=== PATIENT | male | born 1995 | race Caucasian/White ===

== ENCOUNTER → 2022-01-17 16:35 | Outpatient (CLI) | payer OTHER, SELFPAY ==
--- NOTE | 2022-01-17 16:37 | DI.RAD.S_ITS ---
PROCEDURE: XR ANKLE LT MIN 3V INDICATIONS: left ankle pain TECHNIQUE: 3 views of the ankle were acquired. COMPARISON: None. FINDINGS: Bones: No acute fractures or dislocations. Ankle mortise is normally aligned. No suspicious bony lesions. Soft tissues: Mild soft tissue edema over the lateral malleolus. IMPRESSION: No acute osseous abnormality. If clinical suspicion and/or symptoms persist, additional imaging with repeat plain films, or advanced imaging (e.g. CT, MRI) may be helpful for further assessment. Approved by: Bandar Soria M.D. on 01/17/2022 at 17:05
== END ==
PROVIDERS: Referring Provider Nurse Practitioner Family; Visit Provider Nurse Practitioner Family
DX: M25.572 Pain in left ankle and joints of left foot (principal)
CPT/HCPCS: 73610

== ENCOUNTER 2022-09-12 11:21 | Emergency (ER) | payer OTHER, SELFPAY ==
[2022-09-12] VITALS (7 sets, daily range): BP systolic 119–135; BP diastolic 74–87; PULSE 65–79; RESP 17–18; TEMP 36.4; O2SAT 96–100
--- NOTE | 2022-09-12 11:34 | DI.CT.S_ITS ---
PROCEDURE: CT HEAD/BRAIN WO CON INDICATIONS: dizziness, near syncope, hx pseudotumor cerebri TECHNIQUE: Noncontrast 4.5 mm thick angled axial sections acquired from the foramen magnum to the vertex, with coronal and sagittal reformats. For radiation dose reduction, the following was used: automated exposure control, adjustment of mA and/or kV according to patient size. COMPARISON: None. FINDINGS: Image quality: Excellent. CSF spaces: Basal cisterns are patent. No extra-axial fluid collections. Ventricles are normal in size and shape. Brain: No midline shift. No intracranial masses or hemorrhage. Toney-white matter interface is normal. Skull and face: Calvarium and visualized facial bones are intact, without suspicious lesions. Sinuses: Visualized sinuses and mastoids are clear. IMPRESSION: No acute intracranial abnormalities. Dictated by: Mario Turner M.D. on 09/12/2022 at 12:11 Approved by: Mario Turner M.D. on 09/12/2022 at 12:12
--- NOTE | 2022-09-12 11:37 | ED_ITS ---
HPI - Dizziness General Chief Complaint: Dizziness Stated Complaint: Dizzy, Feels drunk w/o ETOH Time Seen by Provider: 09/12/22 11:28 Source: patient Mode of arrival: Ambulatory History of Present Illness HPI Narrative: 27-year-old male nonsmoker with a history of pseudotumor cerebri presents with a chief complaint of some vague dizziness over the past few days. He states the dizziness is worse upon standing and improves when he sits. He denies any trauma or injury. He has no neck pain. Denies any fever or chills. He does state his symptoms are vaguely similar to when his pseudotumor had initially started many [place] ago [place]. He denies any pain, denies any alcohol or street drugs. Denies runny nose, sore throat or cough. Denies any nausea or vomiting. Is able to walk a straight line with a steady gait. Denies any extremity numbness, tingling or weakness Related Data Home Medications Medication Instructions Recorded Confirmed sertraline 50 mg tablet 50 mg PO DAILY 09/12/22 09/12/22 Allergies Allergy/AdvReac Type Severity Reaction Status Date / Time loratadine [From Claritin] AdvReac Mild Verified 09/12/22 11:32 Review of Systems Review of Systems Narrative: GENERAL: Denies chills, fatigue, malaise, fever, sweats. HEENT: Denies sinus pain, ear pain, sore throat, difficulty swallowing, dizziness. RESPIRATORY: Denies dyspnea, cough, wheezing, hemoptysis, sputum. CARDIOVASCULAR: Denies chest pain, palpitations, orthopnea, edema, GASTROINTESTINAL: Denies nausea, vomiting, abdominal pain, diarrhea, constipation, melena. : Denies dysuria, frequency, incontinence, hematuria, urinary retention. MUSCULOSKELETAL: denies weakness, joint pain, or bony pain SKIN: Denies rash, skin lesions, or other NEUROLOGIC: See HPI PSYCHIATRIC: No concerning psychosocial issues. 12 point review of systems is negative except for those stated above Patient History Social History Smoking Status: Never smoker Smoking Status: Never smoker tobacco type: smokeless tobacco alcohol intake frequency: 0-2 drinks per day Substance Use Type: does not use Exam Narrative Exam Narrative: GENERAL: [27] year old patient appears stated age. Well-developed patient, in mild distress. HEAD: Atraumatic. Normocephalic. EYES: Pupils equal round and reactive. Extraocular motions intact. No scleral icterus. No injection or drainage. ENT: Nose without bleeding, purulent drainage. Throat without erythema, tonsillar hypertrophy or exudate. Airway patent. NECK: Trachea midline. Non tender CARDIOVASCULAR: Regular rate and rhythm without murmurs, gallops, or rubs. RESPIRATORY: Clear to auscultation. Breath sounds equal bilaterally. No wheezes, rales, or rhonchi. GASTROINTESTINAL: Abdomen soft, non-tender, nondistended. EXTREMITIES: No edema or joint tenderness. BACK: Nontender without deformity or crepitance. No flank tenderness. NEURO: AOx3. Cranial nerves 2-12 grossly intact SKIN: No rash or erythema of visible areas NIH Stroke Scale 1a. LOC: Patient is alert and keenly responsive (0) 1b. LOC Questions: Patient answers both LOC questions accurately (0) 1c. LOC Commands: Patient performs both tasks correctly (0) 2. Best Gaze: Normal (0) 3. Visual: No visual loss (0) 4. Facial palsy: Normal symmetrical movements (0) 5. Motor arm: No drift (0) 6. Motor leg: No drift (0) 7. Limb ataxia: Absent (0) 8. Sensory: Normal (0) 9. Best language: No aphasia; normal (0) 10. Dysarthria: Normal (0) 11. Extinction and inattention: No abnormality (0) NIHSS: 0 Initial Vital Signs Initial Vital Signs: Vital Signs Temperature 97.5 F L 09/12/22 11:25 Pulse Rate 79 09/12/22 11:25 Respiratory Rate 18 09/12/22 11:25 Blood Pressure 135/87 09/12/22 11:25 Pulse Oximetry 96 09/12/22 11:25 Oxygen Delivery Method Room Air 09/12/22 11:25 Course Orders Ordered: Discontinued Medications Sodium Chloride (Normal Saline 0.9%) 1,000 mls @ 1,000 mls/hr IV BOLUS ONE Stop: 09/12/22 12:32 Last Infusion: 09/12/22 12:51 Dose: 0 mls/hr Documented By: Admin: 09/12/22 11:57 Dose: 1,000 mls/hr Documented By: [facility] – [place], [place] Vital Signs Vital signs: Vital Signs - 8 hr 09/12/22 11:25 Temperature 97.5 F L Pulse Rate 79 Respiratory Rate 18 Blood Pressure 135/87 Pulse Oximetry 96 Oxygen Delivery Method Room Air MDM - Dizziness Lab Data 09/12/22 11:39 09/12/22 11:39 Labs: Lab Results 09/12/22 09/12/22 Range/Units 11:39 11:39 WBC 7.5 (4.5-11.0) X10^3/uL RBC 4.48 L (4.5-5.9) X10^6/uL Hgb 14.8 (13.5-17.5) g/dL Hct 41.2 (41-53) % MCV 91.8 (80-100) fL MCH 33.0 (26-34) PG MCHC 35.9 (30-36) % RDW 12.8 (11.6-14.8) % Plt Count 224 (150-400) X10^3/uL Neut % (Auto) 68.2 (50-75) % Lymph % (Auto) 20.4 L (25-40) % [place] % (Auto) 8.4 (3-14) % Eos % (Auto) 2.0 (2-4) % Baso % (Auto) 1.0 (0-2) % Neut # (Auto) 5100 (4170-6571) /uL Lymph # (Auto) 1500 (0350-2991) /uL [place] # (Auto) 600 (0-900) /uL Eos # (Auto) 100 (0-450) /uL Baso # (Auto) 100 (0-100) /uL Sodium 137 (137-145) mmol/L Potassium 3.9 (3.4-5.1) mmol/L Chloride 103 (98-107) mmol/L Carbon Dioxide 27 (22-32) mmol/L BUN 18 (9-20) mg/dL Creatinine 0.98 (0.66-1.25) mg/dL Estimated GFR > 60 (>60) mL/min BUN/Creatinine Ratio 18.4 (6-22) Glucose 89 (70-100) mg/dL Calcium 8.9 (8.4-10.2) mg/dL Magnesium 2.2 (1.6-2.3) mg/dL Total Bilirubin 0.8 (0.2-1.3) mg/dL AST 35 (17-59) IU/L ALT 22 (<50) IU/L Alkaline Phosphatase 63 (38-126) U/L Total Protein 7.2 (6.3-8.2) g/dL Albumin 4.5 (3.5-5.0) g/dL Globulin 2.7 (1.7-4.1) g/dL Albumin/Globulin Ratio 1.7 (1.0-2.8) Urine Dip Bedside Urine Glucose Negative Bedside Urine Bilirubin - Negative Bedside Urine Ketone - Negative Urine Specific [place] 1.015 Bedside Urine Occult Blood - Negative Bedside Urine pH 6.0 Bedside Urine Protein - Negative Bedside Urine Urobilinogen - Negative Bedside Urine Nitrite - Negative Bedside Urine Leukocytes - Negative Esterase MDM Narrative Medical decision making narrative: CC: 27-year-old male with vague dizziness Complicating co-morbidities: History of pseudotumor Data collected from: Patient Medical records reviewed: Prior notes reviewed in our EMR Differential considered, but not limited to: Stroke versus atypical migraine versus dissection versus pseudotumor versus other Exam documented above, pertinent findings include: Very reassuring, cranial nerves 2-12 grossly intact, no focal findings, heart rate regular, lungs clear Lab Test results independently reviewed as above. Pertinent findings: No significant abnormalities requiring intervention Independently reviewed EKG as above Imaging studies independently reviewed: Head CT, CTA of head and neck, and MRI unremarkable Scores Used: NIHSS Discussion: 19-year-old male with reassuring history and physical exam, multiple diagnoses considered as noted above, labs, imaging all very reassuring, no evidence at this time that further intervention or treatment is needed. He is encouraged to follow closely with his primary care provider, return precautions given Disposition: see below, along with detailed discharge instructions that have been reviewed with patient as well as indications for ED re-evaluation and additional outpatient follow up Discharge Plan Departure Patient Disposition: Home Clinical Impression: Dizziness Instructions: DI for Dizziness-Nonvertigo Activity Restrictions/Additional Instructions: *You have been diagnosed with [dizziness without any significant abnormal findings on labs CT or MRI ] *What to do: *Please continue to take your regular medications as directed. [ ] New medication prescriptions sent to your pharmacy: [ ] [ ] New medication written as a paper prescription [x ] No new medications given *Please follow up with your primary care provider in 2-3 days, call for an appointment. Let them know you were seen in the Emergency Department and that we ask that you be seen in follow up. We will electronically transmit a record of today's note if your PCP is in our system *If you do not have a primary care provider please contact the [facility] Resource line at [phone]. They will ask some questions about your medical history and help get you set up with a doctor in the community. * as we discussed I have included the contact info for the closest Neurology allison up which work out of [facility]. Please contact the office listed below, let them know you were seen in the emergency department and we would like you seen in follow-up *Return to Emergency Department if you should have any new, worsening or concerning symptoms, such as [fever greater than 101 F, shaking chills, worsening pain, persistent vomiting or other bothersome symptoms] Prescriptions: No Action sertraline 50 mg tablet 50 mg PO DAILY Referrals: Miscellaneous,MD Mary [Primary Care Provider] - Andrew Baker MD [Non-Staff] - Stand Alone Forms: Patient Portal/API
[2022-09-12 11:45] LABS: Add Manual Diff / Slide Review NO; Basophils Absolute Auto 100 /uL (0-100); Eosinophils Absolute Auto 100 /uL (0-450); Hematocrit 41.2 % (41-53); Hemoglobin 14.8 g/dL (13.5-17.5); Lymphocytes Absolute Auto 1500 /uL (1100-4500); Lymphocytes Percent Auto 20.4 % (25-40); Mean Corpuscular HGB Conc 35.9 % (30-36); Mean Corpuscular Volume 91.8 fL (80-100); Monocytes Absolute Auto 600 /uL (0-900); Monocytes Percent Auto 8.4 % (3-14); Neutrophils Absolute Auto 5100 /uL (1500-7000); Neutrophils Percent Auto 68.2 % (50-75); Platelet Count 224 X10^3/uL (150-400); Red Blood Cell Count 4.48 X10^6/uL (4.5-5.9); Red Cell Distribution Width 12.8 % (11.6-14.8); White Blood Cell Count 7.5 X10^3/uL (4.5-11.0)
[2022-09-12] MEDS: SODIUM CHLORIDE 0.9% 1,000 ML 1000 ML IV (11:57)
[2022-09-12 11:58] LABS: Alanine Aminotransferase 22 IU/L (<50); Albumin 4.5 g/dL (3.5-5.0); Albumin Globulin Ratio 1.7 (1.0-2.8); Alkaline Phosphatase 63 U/L (38-126); Aspartate Aminotransferase 35 IU/L (17-59); BUN Creatinine Ratio 18.4 (6-22); Bilirubin Total 0.8 mg/dL (0.2-1.3); Blood Urea Nitrogen 18 mg/dL (9-20); Calcium 8.9 mg/dL (8.4-10.2); Carbon Dioxide 27 mmol/L (22-32); Chloride 103 mmol/L (98-107); Estimated Glomerular Filt Rate > 60 mL/min (>60); Globulin 2.7 g/dL (1.7-4.1); Glucose 89 mg/dL (70-100); HEMOLYSIS < 15 (0-50); Magnesium 2.2 mg/dL (1.6-2.3); Potassium 3.9 mmol/L (3.4-5.1); Sodium 137 mmol/L (137-145); Total Protein 7.2 g/dL (6.3-8.2)
--- NOTE | 2022-09-12 12:57 | DI.MRI.S_ITS ---
PROCEDURE: MR HEAD/BRAIN WO CON INDICATIONS: dizzy, headaches TECHNIQUE: Noncontrast axial T1 spin echo, axial T2 fast spin echo, sagittal and axial FLAIR, coronal T2 fast spin echo, axial gradient echo, axial diffusion and ADC through the brain. COMPARISON: None. FINDINGS: Image quality: Excellent. CSF Spaces: Basal cisterns are patent. No extra-axial fluid collections. Ventricles are normal in size and shape. Brain: No intracranial masses or hemorrhage. Toney/white matter interface is normal. Brainstem appears normal. Diffusion-weighted images demonstrate no acute ischemic insult. No chronic ischemic insults. Normal intravascular flow voids are present. Skull and face: Calvarium has normal marrow signal. Orbits appear normal. Sinuses: Minimal mucosal thickening of the maxillary sinuses. Trace left mastoid effusion. IMPRESSION: No acute or subacute infarct. No acute intracranial abnormalities. Dictated by: Will Smith M.D. on 09/12/2022 at 15:13 Approved by: Will Smith M.D. on 09/12/2022 at 15:18
--- NOTE | 2022-09-12 13:43 | DI.CT.S_ITS ---
PROCEDURE: CT ANGIO HEAD AND NECK INDICATIONS: dizzy, headaches TECHNIQUE: After the administration of intravenous contrast, 1 mm thick sections acquired from the aortic arch through the [place] of [place]. Post-contrast 4.5 mm thick sections then re-acquired from the foramen magnum to the vertex. 3-dimensional [id number] (MIP) and/or volume rendering reformats were acquired of the central intracranial vasculature and neck separately. For radiation dose reduction, the following was used: automated exposure control, adjustment of mA and/or kV according to patient size. COMPARISON: [facility], CT, CT HEAD/BRAIN WO CON, 09/12/2022, 12:05. FINDINGS: Image quality: Excellent. HEAD CT ANGIOGRAPHY: Anterior circulation: Intracranial internal carotid arteries are normal in size and flow. The flow within the paired anterior cerebral arteries is normal and symmetric. The flow within the middle cerebral arteries is normal and symmetric. The anterior communicating artery is seen. No aneurysms are seen. Posterior circulation: Visualized portions of the vertebral arteries demonstrate normal caliber, and join to form a normal appearing basilar artery. Flow within the posterior cerebral arteries is normal and symmetric. origin of the left [employer]. No aneurysms are seen. NECK CT ANGIOGRAPHY: Carotid system: The great vessels demonstrate a conventional anatomy as they arise from the aortic arch. The origins of the common carotid arteries appear patent. The common carotid arteries demonstrate normal caliber and courses. The bifurcation regions are both widely patent. The internal carotid arteries demonstrate normal calibers and courses. Posterior circulation: The origins of the vertebral arteries both appear widely patent. The left vertebral artery arises directly from the aorta. The more superior extracranial portions of both vertebral arteries also demonstrate normal courses and calibers. They join to form a normal appearing basilar artery. Soft tissues: Visualized neck soft tissues demonstrate no suspicious abnormalities. Bones: No suspicious bony lesions. Visualized cervical spine appears normally aligned. IMPRESSION: No stenosis, occlusion, aneurysm or AVM. Dictated by: Will Smith M.D. on 09/12/2022 at 14:04 Approved by: Will Simth M.D. on 09/12/2022 at 14:10
== END 2022-09-12 15:57 | disposition home or self-care (01) ==
PROVIDERS: Emergency Provider Emergency Medicine
DX: R42 Dizziness and giddiness (principal); R51.9 Headache, unspecified; Z86.69 Personal history of other diseases of the nervous system and sense organs
CPT/HCPCS: 36415; 70450; 70496; 70498; 70551; 80053; 81003; 83735; 85025; 93005; 96360; 99284; 99285